=== PATIENT | male | born 1985 | race Caucasian/White ===

== ENCOUNTER 2017-06-09 21:27 | Emergency (ER) | END 2017-06-10 01:55 | disposition home or self-care (01) ==

== ENCOUNTER 2017-07-12 17:08 | Emergency (ER) | END 2017-07-12 20:32 | disposition home or self-care (01) ==

== ENCOUNTER 2017-07-17 09:24 | Emergency (ER) | END 2017-07-17 09:48 | disposition home or self-care (01) ==